=== PATIENT | female | born 1955 | race Caucasian/White ===

== ENCOUNTER → 2016-11-05 | Outpatient (CLI) | payer OTHER | LOC: MMGSC 14:38 | PROVIDERS: ATTEND Family Medicine | DX: L30.9 Dermatitis, unspecified (principal) | CPT/HCPCS: 87070; 87077; 87186; 87205 ==

== ENCOUNTER → 2016-11-12 | Outpatient (CLI) | payer OTHER | END | disposition home or self-care (01) | LOC: MMGSC 13:03 | PROVIDERS: ATTEND Family Medicine | DX: M19.90 Unspecified osteoarthritis, unspecified site (principal); R21 Rash and other nonspecific skin eruption | CPT/HCPCS: 36415; 86038; 86431 ==

== ENCOUNTER 2018-08-03 11:10 | Day surgery (SDC) | payer BC, OTHER ==
[2018-08-02 09:08] VITALS: BMI 29.8
[~2018-08-03 11:10] MED LIST: DEXAMETHASONE SOD PHOSPHATE 10 MG/ML 1 ML VIAL IV ONE; HEPARIN SODIUM,PORCINE 5,000 UNIT/ML 1 ML VIAL SQ ONE; LACTATED RINGERS 1,000 ML IV SCH; LIDOCAINE 1% 20 ML VIAL (10MG/ML) FOR IV START INTRADERMA PRN; MIDAZOLAM (PF) 2 MG/2 ML VIAL IV PRN; SCOPOLAMINE 1.5MG/72HR PATCH TRANSDERM ONE; ceFAZolin IN SWFI 2 GM/20 ML SYRINGE IVP ONE
[2018-08-03 11:31] VITALS: TEMP 97.8
[2018-08-03] MEDS: ONDANSETRON 4 MG/2 ML VIAL IVP ONE ×2 (11:41→14:44)
[2018-08-03] MEDS ORDERED: SUCCINYLCHOLINE CHLORIDE 100 MG/5 ML SYR IV ONE (13:07)
[2018-08-03] MEDS ORDERED: ROCURONIUM BROMIDE 10 MG/ML 10 ML VIAL IV ONE (13:07)
[2018-08-03] MEDS ORDERED: MORPHINE SULFATE 10 MG/ML SYRINGE ONE (13:07)
[2018-08-03] MEDS ORDERED: MIDAZOLAM 2 MG/2 ML VIAL ONE (13:07)
[2018-08-03] MEDS ORDERED: GLYCOPYRROLATE 0.2 MG/ML 2 ML VIAL ONE (13:07)
[2018-08-03] MEDS ORDERED: LIDOCAINE 1% INJ 10MG/ML (20 ML MDV) ONE (13:07)
[2018-08-03] MEDS ORDERED: fentaNYL (PF) 50 MCG/ML 2 ML AMP ONE (13:07)
[2018-08-03] MEDS ORDERED: PROPOFOL 10 MG/ML 20 ML VIAL IV ONE (13:07)
[2018-08-03] MEDS ORDERED: WATER FOR INJECTION, STERILE 10 ML VIAL IV ONE (13:07)
[2018-08-03] MEDS ORDERED: ePHEDrine SULFATE/0.9% NACL/PF 50 MG/5 ML SYRINGE IV ONE (13:07)
[2018-08-03] MEDS ORDERED: NEOSTIGMINE 1 MG/ML 10 ML VIAL ONE (13:07)
[2018-08-03] MEDS ORDERED: BUPIVACAIN-EPI 0.25%-1:200,000 30 ML VIAL SQ ONE ×2 (13:08→14:21)
[2018-08-03] MEDS ORDERED: LACTATED RINGERS 1,000 ML IV ONE (13:56)
[2018-08-03] MEDS ORDERED: oxyCODONE-APAP 5-325MG 1 EACH TAB PO PRN (14:37)
[2018-08-03] MEDS ORDERED: NALOXONE 0.4 MG/ML 1 ML VIAL IV PRN (14:37)
[2018-08-03] MEDS ORDERED: PROMETHAZINE 25 MG TAB PO PRN (14:37)
--- NOTE | 2018-08-03 14:41 | P.OP ---
Date of Procedure: 08/03/18 Procedure(s) Performed: PREOPERATIVE DIAGNOSIS: Biliary dyskinesia POSTOPERATIVE DIAGNOSIS: Same PROCEDURE: Laparoscopic cholecystectomy with lysis of adhesions SURGEON: Rachel EBL: Minimal see anesthesia record ANESTHESIA: Gen. COMPLICATIONS: None OPERATIVE PROCEDURE: The patient was brought and placed on the operating room table in the supine position. The patient was placed under general anesthesia at that time. The abdomen was prepped and draped in the usual sterile fashion. A small curvilinear supraumbilical incision was made. The fascia was grasped with the Anup forceps. The fascia was retracted anteriorly. The Veress needle was advanced into the peritoneal cavity. The saline drop test was normal. Insufflation took place up to 15 mmHg. A 5 mm optical trocar was advanced and the peritoneal cavity. Once the camera was inserted I noticed that we had penetrated a small amount of omental fat that was adhesed to the abdominal wall at that location. Following that 2 additional 5 mm trochars were placed in the right upper quadrant under direct visualization. A 12 mm trocar was advanced into the epigastric incision site. The patient also had a veil of adhesions in the right upper quadrant that were lysed sharply. The gallbladder was retracted superiorly and laterally. The peritoneum overlying the infundibulum was bluntly dissected. The patient's cystic duct was visualized. The junction between the cystic duct common and hepatic duct was identified. The cystic duct was then divided after placement of 3 12 mm clips on the patient's side and one on the specimen side. The cystic artery was identified and clipped as well. A small vessel was seen along the gallbladder fossa and clipped as well. The gallbladder was then removed from the liver bed using electrocautery. The gallbladder was then removed from the epigastric trocar site with an Endo Catch bag. The gallbladder fossa was irrigated with saline. There was no evidence of any bleeding or biliary drainage seen. Following that I lysed some adhesions around the supraumbilical trocar entrance site. There was no bowel in the vicinity. This was all omental fat. There was no evidence of bowel injury. The fascia at the 12 millimeter site was closed using a Checo-Reza 0 Vicryl stitch. The skin at all 4 sites was closed using a 4-0 Monocryl stitch. Skin glue was utilized on the incision sites. At the end of this procedure the sponge and needle counts were correct. DISPOSITION: Stable to the recovery room
[2018-08-03] MEDS: HYDROmorphone 0.5 MG/0.5 ML SYRINGE IVP PRN ×2 (14:44→14:52)
[2018-08-03 14:47] VITALS: RESP 16
[2018-08-03 15:43] VITALS: BP 146/88; PULSE 69
[2018-08-03] MEDS ORDERED: oxyCODONE-APAP 5-325MG 1 EACH TAB PO ONE (15:44)
== END 2018-08-03 16:31 | disposition home or self-care (01) ==
LOC: OR 11:10
PROVIDERS: ATTEND Surgery
DX: K81.1 Chronic cholecystitis (principal); K66.0 Peritoneal adhesions (postprocedural) (postinfection); I10 Essential (primary) hypertension; E03.9 Hypothyroidism, unspecified; L93.0 Discoid lupus erythematosus; L66.8 Other cicatricial alopecia; K21.9 Gastro-esophageal reflux disease without esophagitis; Z79.890 Hormone replacement therapy; Z79.899 Other long term (current) drug therapy
CPT/HCPCS: 88304; 47562; J2250; J1644; J1100; J2710; J2270; J2405; J2001; J3010; J0330; J2704; J1170; J0690

== ENCOUNTER 2022-01-04 15:58 | Observation (INO) | payer MEDICARE ==
--- NOTE | 2022-01-04 16:43 | ED ---
General Adult HPI - General Chief complaint: Arrhythmia/Palpitations Stated complaint: Palpitations Time Seen by Provider: 01/04/22 16:31 Source: patient, RN notes reviewed Mode of arrival: ambulatory Limitations: no limitations - History of Present Illness Initial comments: Patient is a pleasant 66-year-old female presenting to the emergency department palpitations. Symptoms have been waxing and waning throughout the day. Patient feels her heart is racing. Patient has also had some mild chest discomfort, none at this time. No history of similar symptoms previously. No previous history of dysrhythmia. No leg pain or leg swelling. - Related Data Home Medications Medication Instructions Recorded Confirmed Cholecalciferol [Vitamin D3] 3,000 unit PO DAILY 08/02/18 08/03/18 Hydroxychloroquine Sulfate 200 mg PO BID 08/02/18 08/03/18 [Plaquenil] Levothyroxine Sodium [Synthroid] 112 mcg PO DAILY 08/02/18 08/02/18 Liothyronine Sodium [Cytomel] 12.5 mcg PO DAILY 08/02/18 08/02/18 Metoprolol Succinate (ER) [Toprol 25 mg PO DAILY 08/02/18 08/02/18 Xl] Multivit with Calcium,Iron,Min 1 each PO DAILY 08/02/18 08/03/18 [Women's Multivitamin] Sertraline [Zoloft] 100 mg PO DAILY 08/02/18 08/02/18 Topiramate [Topamax] 50 mg PO HS 08/02/18 08/03/18 buPROPion HCL [Wellbutrin XL] 300 mg PO DAILY 08/02/18 08/02/18 Previous Rx's Medication Instructions Recorded oxyCODONE HCL/ACETAMINOPHEN 1 tab PO Q6HR PRN 3 Days #10 tab 08/03/18 [Percocet 5-325 mg] Allergies Allergy/AdvReac Type Severity Reaction Status Date / Time No Known Allergies Allergy Verified 01/04/22 16:17 Review of Systems ROS Statement: Those systems with pertinent positive or pertinent negative responses have been documented in the HPI. ROS Other: All systems not noted in ROS Statement are negative. Constitutional: Denies: fever Eyes: Denies: eye pain ENT: Denies: ear pain Respiratory: Denies: cough, dyspnea Cardiovascular: Reports: as per HPI, chest pain, palpitations Endocrine: Denies: fatigue Gastrointestinal: Denies: abdominal pain Genitourinary: Denies: dysuria Musculoskeletal: Denies: back pain Skin: Denies: rash Neurological: Denies: weakness Past Medical History Past Medical History: Hypertension, Thyroid Disorder Additional Past Medical History / Comment(s): discoid lupus, hx. 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 Past Anesthesia/Blood Transfusion Reactions: No Reported Reaction Past Psychological History: Anxiety, Depression Smoking Status: Never smoker Past Alcohol Use History: Occasional Past Drug Use History: None Reported - Past Family History Mother Sister(s) Family Medical History: Cancer, Deep Vein Thrombosis (DVT) Father Family Medical History: Cancer General Exam Limitations: no limitations General appearance: alert, in no apparent distress Head exam: Present: normocephalic Eye exam: Present: normal appearance ENT exam: Present: normal oropharynx Neck exam: Present: normal inspection Respiratory exam: Present: normal lung sounds bilaterally. Absent: respiratory distress Cardiovascular Exam: Present: tachycardia, irregular rhythm GI/Abdominal exam: Present: soft. Absent: tenderness Extremities exam: Present: normal inspection. Absent: pedal edema, calf tenderness Neurological exam: Present: alert Psychiatric exam: Present: normal affect, normal mood Skin exam: Present: normal color Course Vital Signs 01/04/22 01/04/22 01/04/22 16:14 17:01 17:37 Temperature 98.9 F Pulse Rate 81 108 H 77 Respiratory 18 18 Rate Blood Pressure 129/72 143/76 O2 Sat by Pulse 96 98 Oximetry EKG Findings - EKG Comments: EKG Findings:: A. fib with RVR, rate 146. QRS 102. QT 299. QTc 383. Left axis. Inferior Q waves. Lateral Q waves. No acute ST change. Medical Decision Making - Medical Decision Making Patient reevaluated. Patient family updated. Patient has been jumping in and out of A. fib multiple times. [facility] has been paged for adm ission. Patient was started on Cardizem drip. Heparin drip will be started. Case was discussed with Dr. Li, who will admit covering for Dr. Riley. - Lab Data Result diagrams: 01/04/22 16:49 01/04/22 16:49 Lab Results 01/04/22 01/04/22 01/04/22 Range/Units 16:49 16:49 16:49 WBC 7.3 (3.8-10.6) k/uL RBC 3.84 (3.80-5.40) m/uL Hgb 12.7 (11.4-16.0) gm/dL Hct 39.2 (34.0-46.0) % MCV 102.3 H (80.0-100.0) fL MCH 33.1 (25.0-35.0) pg MCHC 32.3 (31.0-37.0) g/dL RDW 12.7 (11.5-15.5) % Plt Count 280 (150-450) k/uL MPV 7.3 Neutrophils % 49 % Lymphocytes % 42 % Monocytes % 5 % Eosinophils % 2 % Basophils % 1 % Neutrophils # 3.6 (1.3-7.7) k/uL Lymphocytes # 3.1 (1.0-4.8) k/uL Monocytes # 0.4 (0-1.0) k/uL Eosinophils # 0.1 (0-0.7) k/uL Basophils # 0.1 (0-0.2) k/uL Macrocytosis Slight PT 10.0 (9.0-12.0) sec INR 0.9 (<1.2) APTT 23.3 (22.0-30.0) sec Sodium 138 (137-145) mmol/L Potassium 4.8 (3.5-5.1) mmol/L Chloride 107 (98-107) mmol/L Carbon Dioxide 22 (22-30) mmol/L Anion Gap 9 mmol/L BUN 24 H (7-17) mg/dL Creatinine 0.82 (0.52-1.04) mg/dL Est GFR (CKD-EPI)AfAm 86 (>60 ml/min/1.73 sqM) Est GFR (CKD-EPI)NonAf 75 (>60 ml/min/1.73 sqM) Glucose 87 (74-99) mg/dL Calcium 9.0 (8.4-10.2) mg/dL Magnesium 2.0 (1.6-2.3) mg/dL Total Bilirubin 0.3 (0.2-1.3) mg/dL AST 31 (14-36) U/L ALT 14 (4-34) U/L Alkaline Phosphatase 55 (38-126) U/L Troponin I (0.000-0.034) ng/mL Total Protein 7.3 (6.3-8.2) g/dL Albumin 4.4 (3.5-5.0) g/dL TSH 1.660 (0.465-4.680) mIU/L Free T4 0.73 L (0.78-2.19) ng/dL Free T3 pg/mL 3.2 (2.8-5.3) pg/ml 01/04/22 Range/Units 16:49 WBC (3.8-10.6) k/uL RBC (3.80-5.40) m/uL Hgb (11.4-16.0) gm/dL Hct (34.0-46.0) % MCV (80.0-100.0) fL MCH (25.0-35.0) pg MCHC (31.0-37.0) g/dL RDW (11.5-15.5) % Plt Count (150-450) k/uL MPV Neutrophils % % Lymphocytes % % Monocytes % % Eosinophils % % Basophils % % Neutrophils # (1.3-7.7) k/uL Lymphocytes # (1.0-4.8) k/uL Monocytes # (0-1.0) k/uL Eosinophils # (0-0.7) k/uL Basophils # (0-0.2) k/uL Macrocytosis PT (9.0-12.0) sec INR (<1.2) APTT (22.0-30.0) sec Sodium (137-145) mmol/L Potassium (3.5-5.1) mmol/L Chloride (98-107) mmol/L Carbon Dioxide (22-30) mmol/L Anion Gap mmol/L BUN (7-17) mg/dL Creatinine (0.52-1.04) mg/dL Est GFR (CKD-EPI)AfAm (>60 ml/min/1.73 sqM) Est GFR (CKD-EPI)NonAf (>60 ml/min/1.73 sqM) Glucose (74-99) mg/dL Calcium (8.4-10.2) mg/dL Magnesium (1.6-2.3) mg/dL Total Bilirubin (0.2-1.3) mg/dL AST (14-36) U/L ALT (4-34) U/L Alkaline Phosphatase (38-126) U/L Troponin I <0.012 (0.000-0.034) ng/mL Total Protein (6.3-8.2) g/dL Albumin (3.5-5.0) g/dL TSH (0.465-4.680) mIU/L Free T4 (0.78-2.19) ng/dL Free T3 pg/mL (2.8-5.3) pg/ml - Radiology Data Radiology results: image reviewed (Chest x-ray shows no acute process) Critical Care Time Critical Care Time: Yes Total Critical Care Time: 32 Disposition Clinical Impression: Atrial fibrillation with RVR Disposition: ADMITTED IP TO THIS HOSP Is patient prescribed a controlled substance at d/c from ED?: No Referrals: Leticia Lopez MD [Primary Care Provider] - 1-2 days Time of Disposition: 18:23
[2022-01-04] MEDS ORDERED: DILTIAZEM 125 MG in SODIUM CHLORIDE 0.9% 100 ML IV SCH (16:45)
[2022-01-04 16:53] LABS: Basophils # (A) 0.1 k/uL (0-0.2); Basophils % (A) 1 %; Eosinophils # (A) 0.1 k/uL (0-0.7); Eosinophils % (A) 2 %; HCT 39.2 % (34.0-46.0); HGB 12.7 gm/dL (11.4-16.0); Lymphocytes # (A) 3.1 k/uL (1.0-4.8); Lymphocytes % (A) 42 %; MCH 33.1 pg (25.0-35.0); MCHC 32.3 g/dL (31.0-37.0); MCV 102.3 fL (80.0-100.0); Macrocytosis Slight; Mean Platelet Volume 7.3; Monocytes # (A) 0.4 k/uL (0-1.0); Monocytes % (A) 5 %; Neutrophils # (A) 3.6 k/uL (1.3-7.7); Neutrophils % (A) 49 %; Platelet Count 280 k/uL (150-450); RBC 3.84 m/uL (3.80-5.40); RDW 12.7 % (11.5-15.5); WBC 7.3 k/uL (3.8-10.6)
[2022-01-04 17:02] LABS: INR 0.9 (<1.2); Partial Thromboplastin Time 23.3 sec (22.0-30.0)
[2022-01-04 17:03] LABS: Albumin 4.4 g/dL (3.5-5.0); Total Bilirubin 0.3 mg/dL (0.2-1.3); Total Protein 7.3 g/dL (6.3-8.2)
[2022-01-04 17:05] LABS: Potassium 4.8 mmol/L (3.5-5.1)
[2022-01-04 17:20] LABS: T4, Free (Free Thyroxine) 0.73 ng/dL (0.78-2.19)
--- NOTE | 2022-01-04 17:22 | XR ---
EXAMINATION TYPE: XR chest 2V DATE OF EXAM: 01/04/2022 COMPARISON: NONE HISTORY: Chest pain TECHNIQUE: 2 views FINDINGS: Heart and mediastinum are normal. Lungs are clear. Diaphragm is normal. Bony thorax is inta ct. IMPRESSION: Normal chest.
[2022-01-04] MEDS ORDERED: HEPARIN SODIUM 1,000 UN/ML (10ML VL) IV PRN (18:24)
[2022-01-04] MEDS ORDERED: NALOXONE 0.4 MG/ML 1 ML VIAL IV PRN (18:24)
[2022-01-04] MEDS ORDERED: HEPARIN SODIUM 1,000 UN/ML (10ML VL) IV ONE (18:24)
[2022-01-04] MEDS ORDERED: HEPARIN SOD,PORK IN 0.45% NACL 25,000 UNIT in 0.45% NACL 1 250ML.BAG IV SCH (18:30)
[2022-01-04] MEDS: HYDROXYCHLOROQUINE SULFATE 200 MG TAB PO SCH (23:55)
--- NOTE | 2022-01-05 00:54 | P.HPIM ---
History of Present Illness H&P Date: 01/04/22 Chief Complaint: palpitations 66-year-old female with history of lupus and fibromyalgia Patient comes in with 1 day history of palpitations she reports that she was doing her daily walk when suddenly she felt her heart is racing her watch was showing elevated heart rate she was feeling palpitations and some chest discomfort with little shortness of breath she waited it out however it was waxing and waning more likely persisted for which she decided to come to the hospital for evaluation she never felt anything like this denies any history of irregular heartbeats she reports recent history of pericarditis. Denies any recent travel or hospitalization denies any history of blood clots. Denies any changes in her medications denies any new herbs or [id number] hours. In the ED EKG showed A. fib with RVR she was converted to normal sinus rhythm with Cardizem drip she was started on Cardizem drip and heparin drip in the ED otherwise her blood work was overall unremarkable TSH was within normal limits low free T4. Chest x-ray was unremarkable Denies any recent illness or sickness otherwise denies any fevers or chills denies any nausea vomiting abdominal pain changes in her bowel habits denies any GI bleeding Review of Systems Pertinent positives as noted in HPI. All other systems were reviewed and are negative Past Medical History Past Medical History: Hypertension, Thyroid Disorder Additional Past Medical History / Comment(s): discoid lupus, hx. 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 Past Anesthesia/Blood Transfusion Reactions: No Reported Reaction Past Psychological History: Anxiety, Depression Smoking Status: Never smoker Past Alcohol Use History: Occasional Past Drug Use History: None Reported - Past Family History Mother Sister(s) Family Medical History: Cancer, Deep Vein Thrombosis (DVT) Father Family Medical History: Cancer Medications and Allergies Home Medications Medication Instructions Recorded Confirmed Type Hydroxychloroquine Sulfate 200 mg PO BID 08/02/18 01/04/22 History [Plaquenil] Levothyroxine Sodium [Synthroid] 112 mcg PO DAILY 08/02/18 01/04/22 History Liothyronine Sodium [Cytomel] 12.5 mcg PO DAILY 08/02/18 01/04/22 History Sertraline [Zoloft] 100 mg PO DAILY 08/02/18 01/04/22 History buPROPion HCL [Wellbutrin XL] 300 mg PO DAILY 08/02/18 01/04/22 History Cholecalciferol [Vitamin D3 (25 75 mcg PO DAILY 01/04/22 01/04/22 History Mcg = 1000 Iu)] Multivit-Min/Iron/Folic/Lutein 1 tab PO DAILY 01/04/22 01/04/22 History [Centrum Silver Women Tablet] Pregabalin [Lyrica] 150 mg PO DAILY 01/04/22 01/04/22 History Allergies Allergy/AdvReac Type Severity Reaction Status Date / Time No Known Allergies Allergy Verified 01/04/22 18:28 Physical Exam Vitals: Vital Signs Temp Pulse Resp BP Pulse Ox 01/04/22 19:20 92 12 110/84 98 01/04/22 17:37 77 01/04/22 17:01 108 H 18 143/76 98 01/04/22 16:14 98.9 F 81 18 129/72 96 Intake and Output 01/04/22 01/04/22 01/04/22 06:59 14:59 22:59 Other: Weight 77.564 kg Constitutional: No acute distress, conversant, pleasant Eyes: Anicteric sclerae, moist conjunctiva, Pupils equal round reactive to light ENMT: NC/AT Oropharynx clear, no erythema, or exudates Neck: Supple, FROM, no masses, or JVD No carotid bruits No thyromegaly Lungs: Clear to auscultation Clear to percussion Normal respiratory effort, no accessory muscle use Cardiovascular: Heart regular in rate and rhythm, No murmurs, gallops, or rubs No peripheral edema Abdominal: Soft Nontender, no guarding, rebound or rigidity Abdomen moving with respiration Normoactive bowel sounds No hepatomegaly, No splenomegaly No palpable mass No abdominal wall hernia noted Skin: Normal temperature, tone, texture, turgor No induration No subcutaneous nodules No rash, lesions No ulcers Extremities: No digital cyanosis No clubbing Pedal pulses intact and symmetrical Radial pulses intact and symmetrical No calf tenderness Psychiatric: Alert and oriented to person, place and time Appropriate affect fair judgement Neuro Muscles Strength 5/5 in all 4 extremities Sensation to light touch grossly present throughout Cranial nerves II-XII grossly intact No focal sensory deficits Lymphatics: no palpable cervical or supraclavicular , or inguinal lymph nodes Results CBC & Chem 7: 01/04/22 16:49 01/04/22 16:49 Labs: Abnormal Lab Results - Last 24 Hours (Table) 01/04/22 01/04/22 Range/Units 16:49 16:49 MCV 102.3 H (80.0-100.0) fL BUN 24 H (7-17) mg/dL Free T4 0.73 L (0.78-2.19) ng/dL Assessment and Plan Assessment: 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 fib Full code Anticipated length of stay more than 2 midnights
[2022-01-05] MEDS: LEVOTHYROXINE 112 MCG TAB PO SCH (05:28)
[2022-01-05 08:03] LABS: Basophils % (A) 0 %; Eosinophils # (A) 0.1 k/uL (0-0.7); Eosinophils % (A) 2 %; HCT 36.6 % (34.0-46.0); HGB 12.1 gm/dL (11.4-16.0); Lymphocytes # (A) 1.7 k/uL (1.0-4.8); Lymphocytes % (A) 48 %; MCH 34.5 pg (25.0-35.0); MCHC 33.1 g/dL (31.0-37.0); MCV 104.5 fL (80.0-100.0); Macrocytosis Slight; Mean Platelet Volume 8.9; Monocytes # (A) 0.2 k/uL (0-1.0); Monocytes % (A) 6 %; Neutrophils # (A) 1.5 k/uL (1.3-7.7); Neutrophils % (A) 42 %; Platelet Count 234 k/uL (150-450); RDW 13.3 % (11.5-15.5); WBC 3.6 k/uL (3.8-10.6)
--- NOTE | 2022-01-05 08:07 | P.CRDCN ---
History of Present Illness Consult date: 01/05/22 History of present illness: History of Present Illness: The patient is a 66-year-old female with a known history of lupus, fibromyalgia and a prior history of hypertension that improved after weight loss who presented with symptoms of palpitations. Her symptoms started yesterday with heart rate up to the 140s associated with dizziness, dyspnea and chest discomfort. Her tachycardia improved and subsequently occurred again. On presentation to the emergency room she was in atrial fibrillation and subsequently converted to sinus mechanism. She is reasonably active physically without any symptoms of chest discomfort, dyspnea or dizziness. She had an episode of paroxysmal atrial fibrillation on an event monitor in 2017. In the past her systolic function was normal and she had no evidence of stress induced ischemia. She denies any PND, orthopnea or peripheral edema. She has no history of syncope. Her coronary risk factors are negative for diabetes or hyp erlipidemia and she is no longer on antihypertensive regimen. She drinks about 3 caffeinated beverages a day and one glass of wine about twice a week. Her CHADS2-VASC2 score is 2. Her medications include levothyroxin, Cytomel, Plaquenil, Zoloft, Wellbutrin, Lyrica Review of Systems: Respiratory: No history of asthma, bronchitis or recent cough. GI: She had nausea and vomiting today. No history of peptic ulcer disease. No recent GI bleed. : No hematuria or dysuria. Nervous System: No stroke or seizure. Physical Examination: 66-year-old female, alert oriented no apparent distress, blood pressure 107/60 with a heart rate in the 60s Head: Normocephalic. Eyes: Sclerae nonicteric. Neck: Good carotid upstroke, no bruit, no jugular venous distention. Lungs: Clear to auscultation. Heart: Regular rate and rhythm, S1-S2, no S3, no rub. No murmur. Abdomen: Soft nontender, positive bowel sounds no organomegaly. Extremities: No edema, intact distal pulses. Labs: Hemoglobin 12.7, BUN 24, creatinine 0.82. Troponin less than 0.012. TSH 1.66, free T3 3 0.2. Initial EKG shows atrial fibrillation rate of 146 with incomplete right bundle branch block and nonspecific ST-T wave changes. [place] bsequent EKG shows sinus mechanism, first-degree AV block is PACs. Chest x-ray shows no infiltrate Impression: 1. Atrial fibrillation, paroxysmal, back in sinus mechanism. Score is 2 2. History of lupus 3. Prior history of hypertension off treatment after weight loss Plan: 1. Obtain an echocardiogram with Doppler 2. Initiate anticoagulation 3. Add low dose beta martha 4. Increased physical activity 5. If stable may be able to be discharged home today and followed as an outpatient. If she has recurrent atrial fibrillation she'll be evaluated for possible ablation. Thank you for this consult we will follow with you. Past Medical History Past Medical History: Hypertension, Thyroid Disorder Additional Past Medical History / Comment(s): discoid lupus, hx. 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 Past Anesthesia/Blood Transfusion Reactions: No Reported Reaction Past Psychological History: Anxiety, Depression Smoking Status: Never smoker Past Alcohol Use History: Occasional Past Drug Use History: None Reported - Past Family History Mother Sister(s) Family Medical History: Cancer, Deep Vein Thrombosis (DVT) Father Family Medical History: Cancer Medications and Allergies Home Medications Medication Instructions Recorded Confirmed Type Hydroxychloroquine Sulfate 200 mg PO BID 08/02/18 01/04/22 History [Plaquenil] Levothyroxine Sodium [Synthroid] 112 mcg PO DAILY 08/02/18 01/04/22 History Liothyronine Sodium [Cytomel] 12.5 mcg PO DAILY 08/02/18 01/04/22 History Sertraline [Zoloft] 100 mg PO DAILY 08/02/18 01/04/22 History buPROPion HCL [Wellbutrin XL] 300 mg PO DAILY 08/02/18 01/04/22 History Cholecalciferol [Vitamin D3 (25 75 mcg PO DAILY 01/04/22 01/04/22 History Mcg = 1000 Iu)] Multivit-Min/Iron/Folic/Lutein 1 tab PO DAILY 01/04/22 01/04/22 History [Centrum Silver Women Tablet] Pregabalin [Lyrica] 150 mg PO DAILY 01/04/22 01/04/22 History Allergies Allergy/AdvReac Type Severity Reaction Status Date / Time No Known Allergies Allergy Verified 01/04/22 18:28 Physical Exam Vitals: Vital Signs Temp Pulse Pulse Resp BP BP Pulse Ox 01/05/22 03:45 69 17 95/58 94 L 01/04/22 23:20 68 18 93/57 94 L 01/04/22 22:00 98.2 F 66 18 107/69 97 01/04/22 21:56 68 18 99/57 96 01/04/22 19:20 92 12 110/84 98 01/04/22 17:37 77 01/04/22 17:01 108 H 18 143/76 98 01/04/22 16:14 98.9 F 81 18 129/72 96 Intake and Output 01/04/22 01/05/22 01/05/22 22:59 06:59 14:59 Intake Total 59.571 Balance 59.571 Intake: Intake, IV Titration 59.571 Amount Heparin Sod,Pork in 0.45% 59.571 NaCl 25,000 unit In 0.45 % NaCl 1 250ml.bag @ 12 UNITS/KG/HR 9.308 mls/hr IV .Q24H [facility] Rx#: [id number] Other: Voiding Method Toilet Toilet Weight 77.564 kg Results 01/04/22 16:49 01/04/22 16:49 Cardiac Enzymes 01/04/22 01/04/22 01/04/22 Range/Units 16:49 16:49 20:53 AST 31 (14-36) U/L Troponin I <0.012 <0.012 (0.000-0.034) ng/mL 01/05/22 Range/Units 00:28 AST (14-36) U/L Troponin I <0.012 (0.000-0.034) ng/mL Coagulation 01/04/22 01/05/22 Range/Units 16:49 00:28 PT 10.0 (9.0-12.0) sec APTT 23.3 53.3 H (22.0-30.0) sec CBC 01/04/22 Range/Units 16:49 WBC 7.3 (3.8-10.6) k/uL RBC 3.84 (3.80-5.40) m/uL Hgb 12.7 (11.4-16.0) gm/dL Hct 39.2 (34.0-46.0) % Plt Count 280 (150-450) k/uL Comprehensive Metabolic Panel 01/04/22 Range/Units 16:49 Sodium 138 (137-145) mmol/L Potassium 4.8 (3.5-5.1) mmol/L Chloride 107 (98-107) mmol/L Carbon Dioxide 22 (22-30) mmol/L BUN 24 H (7-17) mg/dL Creatinine 0.82 (0.52-1.04) mg/dL Glucose 87 (74-99) mg/dL Calcium 9.0 (8.4-10.2) mg/dL AST 31 (14-36) U/L ALT 14 (4-34) U/L Alkaline Phosphatase 55 (38-126) U/L Total Protein 7.3 (6.3-8.2) g/dL Albumin 4.4 (3.5-5.0) g/dL Current Medications Generic Name Dose Route Start Last Admin Trade Name Freq PRN Reason Stop Dose Admin Bupropion HCl 300 mg 01/05/22 09:00 Bupropion Xl 300 Mg Tab.Er.24h PO DAILY [facility] Cholecalciferol 75 mcg 01/05/22 09:00 Cholecalciferol 25 Mcg (1000 Iu) Tablet PO DAILY [facility] Heparin Sodium (Porcine) 0 unit 01/04/22 18:24 Heparin Sodium 1,000 Un/Ml (10ml Vl) IV PER PROTOCOL PRN Low PTT Protocol Hydroxychloroquine Sulfate 200 mg 01/04/22 23:45 01/04/22 23:55 Hydroxychloroquine Sulfate 200 Mg Tab PO 200 mg BID [facility] Administration Heparin Sodium/Sodium Chloride 250 mls @ 9.308 mls/hr 01/04/22 18:30 01/05/22 01:18 25,000 unit/ Sodium Chloride IV 12 units/kg/hr .Q24H [facility] 9.308 mls/hr Titration Protocol 12 UNITS/KG/HR Levothyroxine Sodium 112 mcg 01/05/22 06:30 01/05/22 05:28 Levothyroxine 112 Mcg Tab PO 112 mcg DAILY@0630 [facility] Administration Liothyronine Sodium 12.5 mcg 01/05/22 09:00 Liothyronine Sodium 5 Mcg Tab PO DAILY [facility] Naloxone HCl 0.2 mg 01/04/22 18:24 Naloxone 0.4 Mg/Ml 1 Ml Vial IV Q2M PRN Opioid Reversal Pantoprazole Sodium 40 mg 01/05/22 09:00 Pantoprazole 40 Mg/10 Ml Vial IV DAILY [facility] Pregabalin 150 mg 01/05/22 09:00 Pregabalin 75 Mg Cap PO DAILY [facility] Sertraline HCl 100 mg 01/05/22 09:00 Sertraline 100 Mg Tab PO DAILY [facility] Intake and Output 01/04/22 01/05/22 01/05/22 22:59 06:59 14:59 Intake Total 59.571 Balance 59.571 Intake: Intake, IV Titration 59.571 Amount Heparin Sod,Pork in 0.45% 59.571 NaCl 25,000 unit In 0.45 % NaCl 1 250ml.bag @ 12 UNITS/KG/HR 9.308 mls/hr IV .Q24H [facility] Rx#: [id number] Other: Voiding Method Toilet Toilet Weight 77.564 kg 01/04/22 16:49 01/04/22 16:49
[2022-01-05 08:12] LABS: Prothrombin Time 10.7 sec (9.0-12.0)
[2022-01-05] MEDS ORDERED: PANTOPRAZOLE 40 MG/10 ML VIAL IV SCH (09:00)
[2022-01-05] MEDS: METOPROLOL TARTRATE 25 MG TAB PO SCH ×2 (09:39→20:51)
[2022-01-05] MEDS: HYDROXYCHLOROQUINE SULFATE 200 MG TAB PO SCH ×2 (09:49→21:25)
[2022-01-05] MEDS: LIOTHYRONINE SODIUM 5 MCG TAB PO SCH (09:49)
[2022-01-05] MEDS: buPROPion XL 300 MG TAB.ER.24H PO SCH (09:51)
[2022-01-05] MEDS: CHOLECALCIFEROL 25 MCG (1000 IU) TABLET PO SCH (09:51)
[2022-01-05] MEDS: PREGABALIN 75 MG CAP PO SCH (09:51)
[2022-01-05] MEDS: SERTRALINE 100 MG TAB PO SCH (09:51)
--- NOTE | 2022-01-05 11:40 | CA ---
Transthoracic Echo Report Name: Lay Alas Age: 66 Gender: F : 1955 Exam Date: 01/05/2022 08:20 Exam Location: [facility] Ht (in): 67 Wt (lb): 171 Ordering Physician: Petr Vasquez DO Attending/Referring Phys: Clinical Laboratory Technologist Thelma Decker RDCS Procedure CPT: Indications: New-onset A. fib Cardiac Hx: Technical Quality: Good Contrast 1: Total Dose (mL): Contrast 2: Total Dose (mL): MEASUREMENTS (Male / Female) Normal Values 2D ECHO LV Diastolic Diameter PLAX 4.3 cm 4.2 - 5.9 / 3.9 - 5.3 cm LV Systolic Diameter PLAX 4.0 cm IVS Diastolic Thickness 1.2 cm 0.6 - 1.0 / 0.6 - 0.9 cm LVPW Diastolic Thickness 1.8 cm 0.6 - 1.0 / 0.6 - 0.9 cm LV Relative Wall Thickness 0.7 RV Internal Dim ED PLAX 3.7 cm LA Systolic Diameter LX 4.8 cm 3.0 - 4.0 / 2.7 - 3.8 cm LA Volume 68.5 cm??? 18 - 58 / 22 - 52 cm??? M-MODE Aortic Root Diameter MM 3.4 cm MV E Point Septal Separation 0.8 cm AV Cusp Separation MM 2.2 cm DOPPLER MV Area PHT 4.0 cm??? Mitral E Point Velocity 50.2 cm/s Mitral A Point Velocity 61.5 cm/s Mitral E to A Ratio 0.8 MV Deceleration Time 189.0 ms MV E' Velocity 7.4 cm/s Mitral E to MV E' Ratio 6.7 TR Peak Velocity 204.3 cm/s TR Peak Gradient 16.7 mmHg Right Ventricular Systolic Press 21.7 mmHg FINDINGS Left Ventricle Normal Left ventricular size, mild wall thickness,left ventricular ejection fraction is estimated at 50-55%. Right Ventricle Normal right ventricular size and function. Right ventricular systolic pressure within normal limits. Right Atrium Normal right atrial size. Left Atrium Severely increased left atrial diameter. Moderately increased left atrial volume. Mildly increased left atrial area. Mitral Valve Structurally normal mitral valve. Mild mitral regurgitation. Aortic Valve Trileaflet aortic valve. Tricuspid Valve Structurally normal tricuspid valve. Mild tricuspid regurgitation. Pulmonic Valve Structurally normal pulmonic valve. Pericardium Normal pericardium. Aorta Normal size aortic root and proximal ascending aorta. CONCLUSIONS Normal LV systolic function Left atrium appears enlarged Mild mitral regurgitation Mild tricuspid regurgitation Previewed by: Dr. Aman Ramos MD (Electronically Signed) Final Date: 05 January 2022 11:38
--- NOTE | 2022-01-05 12:23 | P.PN ---
Subjective Progress Note Date: 01/05/22 No new complaints at this time. Patient is back in sinus rhythm. Cardiology would like to watch patient for one more day to ensure no return to atrial fibrillation while on metoprolol and Xarelto. Gen: awake, alert HEENT: normocephalic, atraumatic, good hearing acuity, moist mucous membranes Resp: good air exchange, breathing comfortably with no accessory muscle use CVS: good distal perfusion x 4, GI: soft, NTTP, ND : no SPT, no CVAT, sanchez catheter not present MSK: no pitting edema, no clubbing Neuro: non-focal, moving all extremities Psych: cooperative, euthymic mood Assessment/plan: A. fib with RVR, paroxysmal electronic device monitor Cardiology consult Cardizem drip --> metoprolol Heparin drip --> Xarelto Check echocardiogram Thyroid function showed normal TSH with low free T4 -Recheck in 6-8 weeks with PCP EKG showed conversion to normal sinus rhythm, Cardizem will be discontinued Chest x-ray no acute pathology Hypothyroid continue with levothyroxine Depression continue with SSRI Lupus continue with hydroxychloroquine DVT prophylaxis on Xarelto Full code Objective - Vital Signs Vital signs: Vital Signs Temp 97.7 F 01/05/22 08:00 Pulse 68 01/05/22 08:00 Resp 18 01/05/22 08:00 BP 130/88 01/05/22 08:00 Pulse Ox 94 L 01/05/22 08:00 FiO2 Intake & Output 01/04/22 01/05/22 01/05/22 18:59 06:59 18:59 Intake Total 59.571 118 Balance 59.571 118 Weight 77.564 kg 77.564 kg Intake: Intake, IV Titration 59.571 Amount Heparin Sod,Pork in 0.45% 59.571 NaCl 25,000 unit In 0.45 % NaCl 1 250ml.bag @ 12 UNITS/KG/HR 9.308 mls/hr IV .Q24H [facility] Rx#: [id number] Oral 118 Other: Voiding Method Toilet Toilet - Labs CBC & Chem 7: 01/05/22 06:56 01/04/22 16:49 Labs: Abnormal Lab Results - Last 24 Hours (Table) 01/04/22 01/04/22 01/05/22 Range/Units 16:49 16:49 00:28 WBC (3.8-10.6) k/uL RBC (3.80-5.40) m/uL MCV 102.3 H (80.0-100.0) fL APTT 53.3 H (22.0-30.0) sec BUN 24 H (7-17) mg/dL Free T4 0.73 L (0.78-2.19) ng/dL 01/05/22 01/05/22 Range/Units 06:56 06:56 WBC 3.6 L (3.8-10.6) k/uL RBC 3.50 L (3.80-5.40) m/uL MCV 104.5 H (80.0-100.0) fL APTT 50.0 H (22.0-30.0) sec BUN (7-17) mg/dL Free T4 (0.78-2.19) ng/dL
[2022-01-05] MEDS ORDERED: RIVAROXABAN 20 MG TAB PO SCH (17:30)
[2022-01-05] MEDS ORDERED: ACETAMINOPHEN TAB 325 MG TAB PO PRN (21:36)
[2022-01-06 02:01] VITALS: RESP 16
[2022-01-06] MEDS: LEVOTHYROXINE 112 MCG TAB PO SCH (06:13)
[2022-01-06] MEDS ORDERED: PANTOPRAZOLE 40 MG TABLET PO SCH (09:00)
[2022-01-06] MEDS: LIOTHYRONINE SODIUM 5 MCG TAB PO SCH (09:20)
[2022-01-06] MEDS: PREGABALIN 75 MG CAP PO SCH (09:21)
[2022-01-06] MEDS: HYDROXYCHLOROQUINE SULFATE 200 MG TAB PO SCH (09:21)
[2022-01-06] MEDS: CHOLECALCIFEROL 25 MCG (1000 IU) TABLET PO SCH (09:21)
[2022-01-06] MEDS: METOPROLOL TARTRATE 25 MG TAB PO SCH (09:21)
[2022-01-06] MEDS: SERTRALINE 100 MG TAB PO SCH (09:21)
[2022-01-06] MEDS: buPROPion XL 300 MG TAB.ER.24H PO SCH (09:21)
[2022-01-06 10:57] VITALS: BP 99/65; PULSE 66; TEMP 97.4
--- NOTE | 2022-01-06 11:43 | P.PN ---
Subjective he patient is a 66-year-old female with a known history of lupus, fibromyalgia and a prior history of hypertension that improved after weight loss, She had an episode of paroxysmal atrial fibrillation on an event monitor in 2017. Patient presented with symptoms of palpitations. She did see Dr. Robles in 2017, currently does not follow with a park interpreter. Her symptoms started 1 day before admission with heart rate up to the 140s associated with dizziness, dyspnea and chest discomfort. On presentation to the emergency room she was in atrial fibrillation and subsequently converted to sinus mechanism. Her CHADS2- VASC2 score is 2. Patient seen and examined at bedside, no acute distress. She denies any chest pain, shortness of breath, lightheadedness, dizziness, palpitations. No complaints. She is maintaining sinus mechanism HR 55-60s. No acute distress. Echocardiogram revealed EF 50-55%, mild mitral regurgitation and tricuspid regurgitation. She is currently maintained on metoprolol titrate 25 mg twice a day, Xarelto 20 mg nightly ASSESSMENT: Atrial fibrillation, paroxysmal, back in sinus mechanism. Score is 2 History of lupus Prior history of hypertension off treatment after weight loss PLAN Continue metoprolol tartrate 25 mg twice a day, Xarelto 20 mg nightly From a cardiology perspective, patient is stable to be discharged home. Follow up with Dr. Robles outpatient. Nurse practitioner note has been reviewed by physician. Signing provider agrees with the documented findings, assessment, and plan of care. Objective - Vital Signs Vital signs: Vital Signs Temp 98.1 F 01/05/22 20:00 Pulse 60 01/06/22 04:00 Resp 16 01/06/22 04:00 BP 113/58 01/06/22 04:00 Pulse Ox 96 01/06/22 04:00 FiO2 Intake & Output 01/05/22 01/06/22 01/06/22 18:59 06:59 18:59 Intake Total 354 485 240 Balance 354 485 240 Intake: Oral 354 485 240 Other: Voiding Method Toilet Toilet # Voids 2 2 1 - Labs CBC & Chem 7: 01/05/22 06:56 01/04/22 16:49
--- NOTE | 2022-01-06 16:47 | P.DS ---
Providers Date of admission: 01/04/22 18:24 Expected date of discharge: 01/06/22 Attending physician: Tk Hurt MD Consults: 01/04/22 18:24 Consult Physician Urgent Consulting Provider: Kelly Robles Consult Reason/Comments: New-onset A. fib with RVR Do you want consulting provider notified?: Yes [facility] Course: Discharge Diagnosis: Paroxysmal atrial fibrillation with rapid ventricular response Hypothyroidism Depression Lupus Hospital Course: Patient is a 66-year-old female with history of hypothyroidism, discoid lupus, and hypertension who presented with palpitations. In the ER she underwent an extensive evaluation. She was found have A. fib with RVR. She was started on a Cardizem drip and heparin drip. She was admitted for further monitoring. Her TSH was within normal limits. She underwent an echocardiogram which showed a preserved ejection fraction at 50-55% with a severely increased left atrial diameter, mild atrial regurg, mild tricuspid regurg. She converted to normal sinus rhythm. She was seen by cardiology. Her Cardizem drip was discontinued and she was started on metoprolol. She continued to do well and was determined stable for discharge. Follow-up: Dr. Robles in 2 weeks, Dr. Ha on 01/13. Patient will monitor her heart rate daily and if less than 50 she will hold her metoprolol and notify cardiology. Patient seen and examined at bedside. Feeling well. No complaints. No chest pain, shortness breath, lightheadedness. Beta jannet discussion about benefits and risks of anticoagulation therapy as well as what to look for. Patient is agreeable to anticoagulation therapy. Vital signs reviewed and stable. General: nontoxic, no distress, appears at stated age Derm: warm, dry Head: atraumatic, normocephalic, symmetric Eyes: EOMI, no lid lag, anicteric sclera Mouth: no lip lesion, mucus membranes moist Cardiovascular: S1S2 reg, no murmur, positive posterior tibial pulse bilateral, Lungs: CTA bilateral, no rhonchi, no rales , no accessory muscle use Abdominal: soft, nontender to palpation, no guarding, no appreciable organomegaly Ext: no gross muscle atrophy, no edema, no contractures Neuro: CN II-XI grossly intact, no focal neuro deficits Psych: Alert, oriented, appropriate affect A total of 32 minutes of time were spent preparing this complex discharge summary. Patient was discharged on 01/06/22. Patient Condition at Discharge: Stable Plan - Discharge Summary Discharge Rx Participant: No New Discharge Prescriptions: New Metoprolol Tartrate [Lopressor] 25 mg PO BID #60 tab Rivaroxaban [Xarelto] 20 mg PO W/SUPPER #30 tab Continue buPROPion HCL [Wellbutrin XL] 300 mg PO DAILY Sertraline [Zoloft] 100 mg PO DAILY Liothyronine Sodium [Cytomel] 12.5 mcg PO DAILY Levothyroxine Sodium [Synthroid] 112 mcg PO DAILY Hydroxychloroquine Sulfate [Plaquenil] 200 mg PO BID Cholecalciferol [Vitamin D3 (25 Mcg = 1000 Iu)] 75 mcg PO DAILY Pregabalin [Lyrica] 150 mg PO DAILY Multivit-Min/Iron/Folic/Lutein [Centrum Silver Women Tablet] 1 tab PO DAILY Discharge Medication List Hydroxychloroquine Sulfate [Plaquenil] 200 mg PO BID 08/02/18 [History] Levothyroxine Sodium [Synthroid] 112 mcg PO DAILY 08/02/18 [History] Liothyronine Sodium [Cytomel] 12.5 mcg PO DAILY 08/02/18 [History] Sertraline [Zoloft] 100 mg PO DAILY 08/02/18 [History] buPROPion HCL [Wellbutrin XL] 300 mg PO DAILY 08/02/18 [History] Cholecalciferol [Vitamin D3 (25 Mcg = 1000 Iu)] 75 mcg PO DAILY 01/04/22 [History] Multivit-Min/Iron/Folic/Lutein [Centrum Silver Women Tablet] 1 tab PO DAILY 01/04/22 [History] Pregabalin [Lyrica] 150 mg PO DAILY 01/04/22 [History] Metoprolol Tartrate [Lopressor] 25 mg PO BID #60 tab 01/06/22 [Rx] Rivaroxaban [Xarelto] 20 mg PO W/SUPPER #30 tab 01/06/22 [Rx] Follow up Appointment(s)/Referral(s): Kelly Robles MD [STAFF PHYSICIAN] - 2 Weeks (Office will call with appointment date and time) Leticia Lopez MD [Primary Care Provider] - 01/13/22 9:45 am Patient Instructions/Handouts: Rivaroxaban (By mouth), A-fib (Atrial Fibrillation) (GEN) Activity/Diet/Wound Care/Special Instructions: Activity: as tolerated Diet: heart healthy Special Instructions: Monitor Heart Rate at home twice daily. Hold metoprolol if HR is less than [address] Robles's Office Please proceed to the emergency department for any significant hear injury or fainting episode. Discharge Disposition: HOME SELF-CARE
== END 2022-01-06 11:25 | disposition home or self-care (01) ==
LOC: EC 15:58 → INTOOBSV 18:24 → 3SCARD 18:24 → UNDODISIN 01-06 11:25
PROVIDERS: ADMIT Internal Medicine; ATTEND Internal Medicine
DX: I48.0 Paroxysmal atrial fibrillation (principal); E03.9 Hypothyroidism, unspecified; F32.A Depression, unspecified; L93.0 Discoid lupus erythematosus; I10 Essential (primary) hypertension; F41.9 Anxiety disorder, unspecified; L65.9 Nonscarring hair loss, unspecified; I08.1 Rheumatic disorders of both mitral and tricuspid valves; M79.7 Fibromyalgia; I45.10 Unspecified right bundle-branch block; I44.30 Unspecified atrioventricular block; Z86.14 Personal history of Methicillin resistant Staphylococcus aureus infection; Z90.710 Acquired absence of both cervix and uterus; Z79.899 Other long term (current) drug therapy; Z79.890 Hormone replacement therapy; Z79.01 Long term (current) use of anticoagulants; Z80.9 Family history of malignant neoplasm, unspecified; Z82.49 Family history of ischemic heart disease and other diseases of the circulatory system
CPT/HCPCS: 96366 ×3; 96375; 96368 ×2; 96365; 99291; 36415; 94760; 93005; 93306; 84439; 84481; 80053; 83735; 84443; 84484 ×2; 85025 ×2; 85610 ×2; 85730 ×2; 71046; G0378 ×3; J1644 ×2; C9113

== ENCOUNTER 2024-03-16 13:20 | Emergency (ER) | payer MEDICARE ==
[2024-03-16 13:41] VITALS: RESP 18; TEMP 98
[2024-03-16 14:22] LABS: Basophils % (A) 0 %; Eosinophils # (A) 0.1 k/uL (0-0.7); Eosinophils % (A) 1 %; HCT 38.9 % (34.0-46.0); Lymphocytes # (A) 2.5 k/uL (1.0-4.8); Lymphocytes % (A) 31 %; MCH 32.2 pg (25.0-35.0); MCHC 33.5 g/dL (31.0-37.0); MCV 96.3 fL (80.0-100.0); Mean Platelet Volume 6.7; Monocytes # (A) 0.4 k/uL (0-1.0); Monocytes % (A) 5 %; Neutrophils % (A) 63 %; Platelet Count 376 k/uL (150-450); RBC 4.03 m/uL (3.80-5.40); WBC 8.1 k/uL (3.8-10.6)
[2024-03-16 14:39] LABS: Partial Thromboplastin Time 28.9 sec (22.0-30.0); Prothrombin Time 10.9 sec (10.0-12.5)
--- NOTE | 2024-03-16 14:48 | XR ---
EXAMINATION TYPE: XR chest 2V DATE OF EXAM: 03/16/2024 COMPARISON: NONE TECHNIQUE: PA and lateral views submitted. HISTORY: Dysrhythmia FINDINGS: The lungs are clear and there is no pneumothorax, pleural effusion, or focal pneumonia. Heart size normal and no overt failure. Osseous structures demonstrate hypertrophic and degenerative changes of the spine. Mild osteopenia. Surgical clips in the abdomen. Biapical pleural thickening. Linear scarri ng or atelectasis right lung base. IMPRESSION: 1. No acute process.
[2024-03-16 14:58] LABS: ALT 11 U/L (4-34); AST 22 U/L (14-36); African American GFR (CKD) 85 (>60 ml/min/1.73 sqM); Albumin 4.3 g/dL (3.5-5.0); Alkaline Phosphatase 48 U/L (38-126); Anion Gap 9 mmol/L; Blood Urea Nitrogen 18 mg/dL (7-17); Calcium 9.4 mg/dL (8.4-10.2); Carbon Dioxide 25 mmol/L (22-30); Chloride 102 mmol/L (98-107); Glucose 101 mg/dL (74-99); Magnesium 1.9 mg/dL (1.6-2.3); Non-African American GFR(CKD) 74 (>60 ml/min/1.73 sqM); Potassium 4.3 mmol/L (3.5-5.1); Sodium 136 mmol/L (137-145); Total Bilirubin 0.5 mg/dL (0.2-1.3); Total Protein 7.3 g/dL (6.3-8.2)
--- NOTE | 2024-03-16 15:24 | ED ---
General Adult HPI - General Chief complaint: Arrhythmia/Palpitations Stated complaint: tachy Time Seen by Provider: 03/16/24 13:40 Source: patient Mode of arrival: ambulatory Limitations: no limitations - History of Present Illness Initial comments: 60-year-old female who presents emergency department reporting palpitations. States this started on Tuesday. She does have a history of A-fib. States that she feels like she is sporadically going in and out of it. She does take Xarelto. She denies any chest pain. No shortness of breath. No missed medications. Denies history of DVT or PE. No calf pain or swelling. No fevers, chills or cough. No other alleviating, precipitating modifying factors - Related Data Home Medications Medication Instructions Recorded Confirmed Hydroxychloroquine Sulfate 200 mg PO BID 08/02/18 01/04/22 [Plaquenil] Levothyroxine Sodium [Synthroid] 112 mcg PO DAILY 08/02/18 01/04/22 Liothyronine Sodium [Cytomel] 12.5 mcg PO DAILY 08/02/18 01/04/22 Sertraline [Zoloft] 100 mg PO DAILY 08/02/18 01/04/22 buPROPion HCL [Wellbutrin XL] 300 mg PO DAILY 08/02/18 01/04/22 Cholecalciferol [Vitamin D3 (25 75 mcg PO DAILY 01/04/22 01/04/22 Mcg = 1000 Iu)] Multivit-Min/Iron/Folic/Lutein 1 tab PO DAILY 01/04/22 01/04/22 [Centrum Silver Women Tablet] Pregabalin [Lyrica] 150 mg PO DAILY 01/04/22 01/04/22 Previous Rx's Medication Instructions Recorded Metoprolol Tartrate [Lopressor] 25 mg PO BID #60 tab 01/06/22 Rivaroxaban [Xarelto] 20 mg PO W/SUPPER #30 tab 01/06/22 Allergies Allergy/AdvReac Type Severity Reaction Status Date / Time No Known Allergies Allergy Verified 03/16/24 13:40 Review of Systems ROS Statement: Those systems with pertinent positive or pertinent negative responses have been documented in the HPI. ROS Other: All systems not noted in ROS Statement are negative. Past Medical History Past Medical History: Hypertension, Thyroid Disorder Additional Past Medical History / Comment(s): discoid lupus, hx. 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 Past Anesthesia/Blood Transfusion Reactions: No Reported Reaction Past Psychological History: Anxiety, Depression Smoking Status: Never smoker Past Alcohol Use History: Occasional Past Drug Use History: None Reported - Past Family History Mother Sister(s) Family Medical History: Cancer, Deep Vein Thrombosis (DVT) Father Family Medical History: Cancer General Exam Limitations: no limitations General appearance: alert, in no apparent distress Head exam: Present: atraumatic, normocephalic, normal inspection Eye exam: Present: normal appearance, PERRL, EOMI. Absent: scleral icterus, conjunctival injection, periorbital swelling ENT exam: Present: normal exam, mucous membranes moist Neck exam: Present: normal inspection. Absent: tenderness, meningismus, lymphadenopathy Respiratory exam: Present: normal lung sounds bilaterally. Absent: respiratory distress, wheezes, rales, rhonchi, stridor Cardiovascular Exam: Present: regular rate, normal rhythm, normal heart sounds. Absent: systolic murmur, diastolic murmur, rubs, gallop, clicks GI/Abdominal exam: Present: soft, normal bowel sounds. Absent: distended, tende rness, guarding, rebound, rigid Extremities exam: Present: normal inspection, full ROM, normal capillary refill. Absent: tenderness, pedal edema, joint swelling, calf tenderness Back exam: Present: normal inspection Neurological exam: Present: alert, oriented X3, CN II-XII intact Psychiatric exam: Present: normal affect, normal mood Skin exam: Present: warm, dry, intact, normal color. Absent: rash Course Vital Signs 03/16/24 03/16/24 13:38 15:28 Temperature 98 F Pulse Rate 95 78 Respiratory 18 18 Rate Blood Pressure 116/80 110/76 O2 Sat by Pulse 98 96 Oximetry Medical Decision Making - Medical Decision Making Was pt. sent in by a medical professional or institution (, PA, FLOW TRADER, urgent care, hospital, or shelter...) When possible be specific @ -No Did you speak to anyone other than the patient for history (EMS, parent, family, police, friend...)? What history was obtained from this source @ -No Did you review nursing and triage notes (agree or disagree)? Why? @ -I reviewed and agree with nursing and triage notes Were old charts reviewed (outside hosp., previous admission, EMS record, old EKG, old radiological studies, urgent care reports/EKG's, shelter records)? Report findings @ -No old charts were reviewed Differential Diagnosis (chest pain, altered mental status, abdominal pain women, abdominal pain men, vaginal bleeding, weakness, fever, dyspnea, syncope, headache, dizziness, GI bleed, back pain, seizure, CVA, palpatations, mental health, musculoskeletal)? @ -Differential Palpitations Ventricular arrhythmias, atrial arrhythmias, myocardial infarction, anemia, thyrotoxicosis, electrolyte imbalance, hypokalemia, pulmonary embolism, pulmonary disease, drugs, alcohol, anxiety, stress.... This is not meant to be an all-inclusive list. EKG interpreted by me (3pts min.). @ -Yes and demonstrates sinus rhythm with a rate of 81. IA interval 182. QRS 97. QTc of 381. No acute ST segment elevations or depressions X-rays interpreted by me (1pt min.). @ -Yes and demonstrates no acute process CT interpreted by me (1pt min.). @ -None done U/S interpreted by me (1pt. min.). @ -None done What testing was considered but not performed or refused? (CT, X-rays, U/S, labs)? Why? @ -None What meds were considered but not given or refused? Why? @ -None Did you discuss the management of the patient with other professionals (professionals i.e. , PA, FLOW TRADER, lab, RT, psych nurse, social media marketing specialist, business lawyer, teacher, tactical deception plans officer, case consultant)? Give summary @ -No Was smoking cessation discussed for >3mins.? @ -No Was critical care preformed (if so, how long)? @ -No Were there social determinants of health that impacted care today? How? (Homelessness, low income, unemployed, alcoholism, drug addiction, transportation, low edu. Level, literacy, decrease access to med. care, assisted, rehab)? @ -No Was there de-escalation of care discussed even if they declined (Discuss DNR or withdrawal of care, Hospice)? DNR status @ -No What co-morbidities impacted this encounter? (DM, HTN, Smoking, COPD, CAD, Cancer, CVA, ARF, Chemo, Hep., AIDS, mental health diagnosis, sleep apnea, morbid obesity)? @ -A-fib Was patient admitted / discharged? Hospital course, mention meds given and route, prescriptions, significant lab abnormalities, going to OR and other pertinent info. @ -Upon arrival patient seen and evaluated. Thorough history and physical exam was performed. Laboratory studies are conducted. Chest x-ray was performed. Twelve-lead EKG demonstrates that the patient is in a normal sinus rhythm. She feels comfortable discharge home at this time. Is instructed to follow-up with her agriculture intern and return for any new or worsening symptoms Undiagnosed new problem with uncertain prognosis? @ -No Drug Therapy requiring intensive monitoring for toxicity (Heparin, Nitro, Insulin, Cardizem)? @ -No Were any procedures done? @ -No Diagnosis/symptom? @ -Acute palpitations, history of A-fib Acute, or Chronic, or Acute on Chronic? @ -Acute Uncomplicated (without systemic symptoms) or Complicated (systemic symptoms)? @ -Complicated Side effects of treatment? @ -No Exacerbation, Progression, or Severe Exacerbation? @ -No Poses a threat to life or bodily function? How? (Chest pain, USA, AR, pneumonia, PE, COPD, DKA, ARF, appy, cholecystitis, CVA, Diverticulitis, Homicidal, Suicidal, threat to staff... and all critical care pts) @ -No - Lab Data Result diagrams: 03/16/24 14:16 03/16/24 14:16 Lab Results 03/16/24 03/16/24 03/16/24 Range/Units 14:16 14:16 14:16 WBC 8.1 (3.8-10.6) k/uL RBC 4.03 (3.80-5.40) m/uL Hgb 13.0 (11.4-16.0) gm/dL Hct 38.9 (34.0-46.0) % MCV 96.3 (80.0-100.0) fL MCH 32.2 (25.0-35.0) pg MCHC 33.5 (31.0-37.0) g/dL RDW 12.0 (11.5-15.5) % Plt Count 376 (150-450) k/uL MPV 6.7 Neutrophils % 63 % Lymphocytes % 31 % Monocytes % 5 % Eosinophils % 1 % Basophils % 0 % Neutrophils # 5.0 (1.3-7.7) k/uL Lymphocytes # 2.5 (1.0-4.8) k/uL Monocytes # 0.4 (0-1.0) k/uL Eosinophils # 0.1 (0-0.7) k/uL Basophils # 0.0 (0-0.2) k/uL PT 10.9 (10.0-12.5) sec INR 1.0 (<1.2) APTT 28.9 (22.0-30.0) sec Sodium 136 L (137-145) mmol/L Potassium 4.3 (3.5-5.1) mmol/L Chloride 102 (98-107) mmol/L Carbon Dioxide 25 (22-30) mmol/L Anion Gap 9 mmol/L BUN 18 H (7-17) mg/dL Creatinine 0.82 (0.52-1.04) mg/dL Est GFR (CKD-EPI)AfAm 85 (>60 ml/min/1.73 sqM) Est GFR (CKD-EPI)NonAf 74 (>60 ml/min/1.73 sqM) Glucose 101 H (74-99) mg/dL Calcium 9.4 (8.4-10.2) mg/dL Magnesium 1.9 (1.6-2.3) mg/dL Total Bilirubin 0.5 (0.2-1.3) mg/dL AST 22 (14-36) U/L ALT 11 (4-34) U/L Alkaline Phosphatase 48 (38-126) U/L Troponin I (0.000-0.034) ng/mL Total Protein 7.3 (6.3-8.2) g/dL Albumin 4.3 (3.5-5.0) g/dL 03/16/24 Range/Units 14:16 WBC (3.8-10.6) k/uL RBC (3.80-5.40) m/uL Hgb (11.4-16.0) gm/dL Hct (34.0-46.0) % MCV (80.0-100.0) fL MCH (25.0-35.0) pg MCHC (31.0-37.0) g/dL RDW (11.5-15.5) % Plt Count (150-450) k/uL MPV Neutrophils % % Lymphocytes % % Monocytes % % Eosinophils % % Basophils % % Neutrophils # (1.3-7.7) k/uL Lymphocytes # (1.0-4.8) k/uL Monocytes # (0-1.0) k/uL Eosinophils # (0-0.7) k/uL Basophils # (0-0.2) k/uL PT (10.0-12.5) sec INR (<1.2) APTT (22.0-30.0) sec Sodium (137-145) mmol/L Potassium (3.5-5.1) mmol/L Chloride (98-107) mmol/L Carbon Dioxide (22-30) mmol/L Anion Gap mmol/L BUN (7-17) mg/dL Creatinine (0.52-1.04) mg/dL Est GFR (CKD-EPI)AfAm (>60 ml/min/1.73 sqM) Est GFR (CKD-EPI)NonAf (>60 ml/min/1.73 sqM) Glucose (74-99) mg/dL Calcium (8.4-10.2) mg/dL Magnesium (1.6-2.3) mg/dL Total Bilirubin (0.2-1.3) mg/dL AST (14-36) U/L ALT (4-34) U/L Alkaline Phosphatase (38-126) U/L Troponin I <0.012 (0.000-0.034) ng/mL Total Protein (6.3-8.2) g/dL Albumin (3.5-5.0) g/dL Disposition Clinical Impression: Palpitation Disposition: HOME SELF-CARE Condition: Stable Instructions (If sedation given, give patient instructions): Heart Palpitations (ED) Additional Instructions: Please follow-up with your heart doctor and return for any new or worsening symptoms Is patient prescribed a controlled substance at d/c from ED?: No Referrals: Leticia Lopez MD [Primary Care Provider] - 1-2 days Time of Disposition: 15:24
[2024-03-16 15:29] VITALS: BP 110/76; PULSE 78
== END 2024-03-16 15:29 | disposition home or self-care (01) ==
LOC: EC 13:20
CPT/HCPCS: 36415; 71046; 80053; 83735; 84484; 85025; 85610; 85730; 93005; 99285